=== PATIENT | male | born 2000 | race Caucasian/White ===

== ENCOUNTER 2023-08-06 18:17 | Emergency (ER) | payer MEDICAID, SELFPAY ==
[2023-08-06 18:29] VITALS: BP 156/85; PULSE 95; RESP 18; TEMP 36.6; O2SAT 98; BMI 27.4
--- NOTE | 2023-08-06 18:49 | ED_ITS ---
HPI - Psych General Time Seen by Provider: 18:49 Date Seen: 08/06/23 Chief Complaint: Psychiatric Problem/Disorder Stated Complaint: Mental health Time Seen by Provider: 08/06/23 18:49 Source: patient, RN notes reviewed and old records reviewed Mode of arrival: ambulatory Limitations: no limitations History of Present Illness HPI Narrative: 22-year-old male who presents today with suicide ideation with a plan. History of depression, does have a therapist whom he sees who recommended coming to the emergency department for evaluation. Patient on Wellbutrin, long history of depression without prior inpatient mental health treatment. Suicide ideation with plan to slit his throat in isolated setting. Has not attempted to hurt herself. Denies overdose. Denies smoking and drug use. Related Data Home Medications ?Medication ?Instructions ?Recorded ?Confirmed bupropion HCl 300 mg 24 hr tablet, 300 mg PO DAILY 08/06/23 08/06/23 extended release Allergies Allergy/AdvReac Type Severity Reaction Status Date / Time No Known Drug Allergies Allergy Verified 08/06/23 18:37 Exam Narrative: Exam Narrative: General: Well-developed and well-nourished, no acute distress Head: Atraumatic and normocephalic Eyes: Pupils are equal reactive, extraocular motions intact, conjunctiva clear ENT: External nose and ears are normal, posterior pharynx without erythema or exudate Neck: No midline cervical tenderness, full spontaneous range of motion the neck, trachea midline, no adenopathy Heart: Regular rate and rhythm no murmurs or thrills Lungs: Clear to auscultation bilaterally without wheezes or crackles Abdomen: Soft, nontender, nondistended with active bowel sounds Musculoskeletal: No tenderness, deformity, or edema Neurologic: Awake, alert, and oriented x3, no gross focal neurologic deficits, cranial nerves intact as tested Psych: Poor eye contact, flat affect Skin: No rashes Const: Vital Signs, click to edit/add: Vital Signs - 24 hr 08/06/23 18:29 Temperature 98 F Pulse Rate [Right Pulse Oximeter] 95 Respiratory Rate 18 Blood Pressure [Ri ght Upper Arm] 156/85 H Pulse Oximetry 98 Oxygen Delivery Me thod Room Air Course Course ED Course: Patient seen examined, prior records reviewed. Patient presents today with increasing depressive symptoms, with suicide ideation and plan. Sent here by his therapist. On exam, admits to ongoing suicidal thoughts, worsening depression, also suicide ideation with plan. Poor eye contact, flat affect. Labs ordered and plan for transfer for inpatient behavioral health admission. Reevaluation(s) Time of Reevaluation #1: 22:18 Reevaluation #1: Labs ordered and independently interpreted by me with slightly elevated LFTs, normal basic panel, negative alcohol, negative COVID. Patient is medically stable for mental health admission. Time of Reevaluation #2: 23:33 Reevaluation #2: Patient accepted to [facility] for inpatient behavioral health treatment Vital Signs Vital signs: Initial Vital Signs Temperature 98 F 08/06/23 18:29 Temperature Source Temporal Artery Scan 08/06/23 18:29 Pulse Rate 95 08/06/23 18:29 Pulse Rhythm Regular 08/06/23 18:29 Pulse Strength 3+ Normal 08/06/23 18:29 Respiratory Rate 18 08/06/23 18:29 Blood Pressure 156/85 H 08/06/23 18:29 Blood Pressure Mean 108 H 08/06/23 18:29 Blood Pressure Position Sitting 08/06/23 18:29 Pulse Oximetry 98 08/06/23 18:29 Oxygen Delivery Method Room Air 08/06/23 18:29 Vital Signs Temperature 98 F 08/06/23 18:29 Pulse Rate 95 08/06/23 18:29 Respiratory Rate 18 08/06/23 18:29 Blood Pressure 156/85 H 08/06/23 18:29 Pulse Oximetry 98 08/06/23 18:29 Oxygen Delivery Method Room Air 08/06/23 18:29 Temperature 98 F 08/06/23 18:29 Pulse Rate 95 08/06/23 18:29 Respiratory Rate 18 08/06/23 18:29 Blood Pressure 156/85 H 08/06/23 18:29 Pulse Oximetry 98 08/06/23 18:29 Oxygen Delivery Method Room Air 08/06/23 18:29 MDM - Psych Lab Data Labs: Lab Results 08/06/23 Range/Units 19:49 Sodium 138 (135-149) mmol/L Potassium 3.7 (3.6-5.1) mmol/L Chloride 104 (96-114) mmol/L Carbon Dioxide 27 (20-32) mmol/L Anion Gap 7 (7-15) mEq/L BUN 10 (5-24) mg/dL Creatinine 0.9 (0.5-1.5) mg/dL Estimated Creat Clear 121.39 Estimated GFR 125 ml/min Glucose 97 (60-115) mg/dL Calcium 9.6 (8.4-10.6) mg/dL Total Bilirubin 0.7 (0.1-1.5) mg/dL Direct Bilirubin 0.3 (0.0-0.5) mg/dL AST 126 H (12-35) U/L ALT 77 H (4-50) U/L Alkaline Phosphatase 75 (40-150) U/L Total Protein 7.9 (6.0-8.3) g/dL Albumin 5.3 H (3.3-5.0) g/dL Ethyl Alcohol < 0.01 L (0.01-0.03) % SARS-CoV-2 (PCR) Negative SARS-CoV-2 (Negative) Influenza Type A (PCR) Negative PCR FLU A (Negative) Influenza Type B (PCR) Negative PCR FLU B (Negative) Discharge Plan Discharge Clinical Impression: Depression, Suicide ideation Prescriptions: No Action bupropion HCl 300 mg tablet extended release 24 hr 300 mg PO DAILY
--- OUTSIDE RECORDS SUMMARY | 2023-08-06 19:18 | XMS_ITS | Clinical Summary ---
Author Organization [facility] Address [place], [place] [address] Care Team Providers Care Wastewater Treatment Supervisor Name Role Phone Hilda Bernal Primary Care Provider Unavail able Allergies Active Allergy Reactions Criticality Noted Date Comments Gluten GI Upset 04/07/2020 Medications Medication Sig Dispensed Refills Start Date End Date Status famotidine (PEPCID) 20 mg tabletIndications:Gastr oesophageal reflux disease, unspecified whether esophagitis present Take 1 Tablet (20 mg) by mouth two times daily. 60 Tablet 11 06/07/2022 Active buPROPion (WELLBUTRIN XL) 300 mg Extended-Release tabletIndications:Atten tion deficit hyperactivity disorder (ADHD), predominantly inattentive type,Depression, major, single episode, mild (HC) Take 1 Tablet (300 mg) by mouth once daily. 90 Tablet 1 03/20/2023 Active Active Problems Problem Noted Date Diagnosed Date Celiac disease 08/18/2021 Eating problem 11/21/2017 Adjustment disorder with depressed mood 01/18/20 17 Immunizations Name Administration Dates Next Due DTaP 11/27/2005, 3,04/29/2002,03/04,01/03/2002 HIB-HepB (Comvax) 01/13/2003,03/04/2002,01/04/20 02 HPV 9 (Gardasil 9) 03/27/2016,11/22/2015, 016 Hepatitis A (Peds) 03/27/2016,09/02/2015 Inactivated Polio Vaccine 11/27/2005,,03/04/2002,01/03 Influenza,LAIV4 Live Intrana tay (Flumist) 12/16/2007 MMR 11/27/2005,10/24/2002 Meningococcal Vaccine (Menveo) 07/22/2018,2014 Pneumococcal conj 7-Valent (Prevnar 7) 1 03/15/2002,07/30/2002,04/29/2002,03/04,01/03/2002 Tdap 09/23/2014 Varicella Vaccine 09/23/2014,10/24/2002 Family History Medical History Relation Name Comments Hyperlipidemia Maternal Grandfather Diabetes Other maternal great grandmas Heart Disease Other maternal great aunt and maternal great grandma Diabetes Paternal Grandfather Asthma No Family History Cancer-colon No Family History Relation Name Status Comments Maternal Grandfather Other Paternal Grandfather Social History Tobacco Use Types Packs/Day Years Used Date Smoking Tobacco: Never Passive Smoke Exposure: Yes Smokeless Tobacco: Never Tobacco Cessation:Counseling Given: Yes Comments:parents smoke mostly outside Alcohol Use Standard Drinks/Week Comments No 0 (1 standard drink = 0.6 oz pur e alcohol) PHQ-2 Answer Date Recorded PHQ-2 TOTAL SCORE 2 03/20/2023 Social Connections Answer Date Recorded Frequency of Communication with Friends and Fami ly Not on file 06/21/2023 Financial Resource Strain Answer Date R ecorded Difficulty of Paying Living Expenses 3 06/07/2022 Difficulty of Paying Living Expenses Not on file 06/07/2022 Food Insecurity Answer Date Recorded Worried About Running Out of Food in the Last Ye ar 1 06/07/2022 Transportation Needs Answer Date Record ed Lack of Transportation (Medical) 1 06/07/2022 Housing Stability Answer Date Recorded Unable to Pay for Housing in the Last Year 1 06/07/2022 Sex and Gender Information Value Date Recorded Sex Assigned at Not on file Gender Identity Not on file Sexual Orientation Not on file Obstetrics History Last Filed Vital Signs Vital Sign Reading Time Taken Comments Blood Pressure 117/78 03/20/2023 10:25 AM POLY PACKER AND HEAT SEALER Pulse 81 03/20/2023 10:25 AM POLY PACKER AND HEAT SEALER Temperature 36.2 ??C (97.2 ??F) 04/08/2018 8:49 AM CS T Respiratory Rate 16 08/28/2015 9:30 AM CDT Oxygen Saturation 99% 03/20/2023 10:25 AM POLY PACKER AND HEAT SEALER Inhaled Oxygen Concentration - - Weight 76.2 kg (168 lb) 03/20/2023 10:25 AM POLY PACKER AND HEAT SEALER Height 171.9 cm (5' 7.68) 08/18/2021 1:40 PM CD T Body Mass Index - - Plan of Treatment Upcoming Encounters Date Type Department Care Team (Late st Contact Info) Description 09/19/2023 1:25 PM CDT Office Visit [facility] [address] [place] [address] Eliz Pham MD [address] [place] [address] Health Maintenance Due Date Last Done Comments HIV for age 15-65 2016 Hepatitis C screening for age 18-79 10/03/2019 BMI (ht and wt on same day) for age 18+ 08/18/2022 08/18/2021, 04/07/2020 COVID-19 vaccine series (2022- season) 2022 Influenza for age 9-49 10/07/2023 12/16/2007 Depression screening for age 12+ 03/20/2024 03/20/2023, 06/07/2022, 08/18/2021, Additional history exists Tetanus booster 09/23/2024 09/23/2014 Pneumococcal series for age 6-64 Aged Out 01/12/2003, 07/30/2002, 04/29/2002, Additional history exists No longer eligible based on patient's age to complete this topic Tdap Completed 09/23/2014 HPV series for age 9-26 Completed 03/27/19 17, 11/22/2015, 09/02/2015 Meningococcal series for age 11-21 Completed 07/22/2018, 09/23/2014 Care Teams Wastewater Treatment Supervisor Relationship Specialty Start Date End Date Hilda Bernal PCP - General 01/08/17
[2023-08-06 20:29] LABS: Albumin* 5.3 g/dL (3.3-5.0)
[2023-08-06 20:30] LABS: Chloride* 104 mmol/L (96-114); Potassium* 3.7 mmol/L (3.6-5.1); Sodium* 138 mmol/L (135-149)
[2023-08-06 20:32] LABS: Anion Gap 7 mEq/L (7-15); Bilirubin Direct* 0.3 mg/dL (0.0-0.5); Bilirubin Total* 0.7 mg/dL (0.1-1.5); Carbon Dioxide* 27 mmol/L (20-32); Creatinine* 0.9 mg/dL (0.5-1.5); Est. Creatinine Clearance* 121.39; Estimated Glomerular Filt Rate 125 ml/min
[2023-08-06 20:33] LABS: Alanine Aminotransferase* 77 U/L (4-50); Alkaline Phosphatase* 75 U/L (40-150); Aspartate Amino Transferase* 126 U/L (12-35); Blood Urea Nitrogen* 10 mg/dL (5-24); Calcium* 9.6 mg/dL (8.4-10.6); Glucose* 97 mg/dL (60-115); Total Protein* 7.9 g/dL (6.0-8.3)
[2023-08-06 20:34] LABS: Ethanol* < 0.01 % (0.01-0.03)
[2023-08-06 21:13] LABS: PCR FLU A Negative PCR FLU A (Negative); PCR FLU B Negative PCR FLU B (Negative); SARS PCR* Negative SARS-CoV-2 (Negative)
[2023-08-07 02:28] LABS: Amphetamine Screen Urine Negative (Negative); Barbiturate Screen Urine Negative (Negative); Benzodiazepines Screen Urine Negative (Negative); Cannabinoid Screen Urine Negative (Negative); Cocaine Screen Urine Negative (Negative); Methadone Screen Urine Negative (Negative); Methamphetamines Screen Urine Negative (Negative); Opiate Screen Urine Negative (Negative); Oxycodone Screen Urine Negative (Negative); Phencyclidine Screen Urine Negative (Negative); Tricyclic Antidepressant Urine Negative (Negative)
[2023-08-07 02:48] VITALS: BP 138/68; PULSE 80; RESP 16; TEMP 36.7; O2SAT 98
--- NOTE | 2023-08-07 02:48 | PC.NURSE ---
Report given to CALOS Hirsch at [facility]. Pt has been asleep, calm and cooperative. Pt's VSS, EMS here for transfer.
== END 2023-08-07 02:50 | disposition short-term general hospital (02) ==
LOC: ED 19:17
PROVIDERS: Emergency Provider Family Medicine
DX: R45.851 Suicidal ideations (principal); F32.A Depression, unspecified
CPT/HCPCS: 36415; 80048; 80076; 80306; 82077; 87631; 99285

== ENCOUNTER 2023-08-07 02:50 | Outpatient (CLI) | payer MEDICAID, SELFPAY ==
--- OUTSIDE RECORDS SUMMARY | 2023-08-13 16:55 | XMS_ITS ---
Author Organization [facility] Address [address] [place] [address] Care Team Providers Care Director Of Business Continuity Name Role Phone Unavailable Unavailable Unavailable Surgery Details Not on file Complications Check Surgery Details section. Procedure Estimated Blood Loss Check Surgery Details section. Procedure Findings Check Surgery Details section. Procedure Specimens Taken Check Surgery Details section.
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
--- OUTSIDE RECORDS SUMMARY | 2023-08-13 16:55 | XMS_ITS | Referral Summary ---
Author Organization [facility] Address [address] [place] [address] Care Team Providers Care Rubber Flap Cutter Name Role Phone Unavailable Primary Care Provider Unavailabl e Source Comments Patient records contain information from all sites at [facility]. For routine questions regarding patient records, call [phone] during business hours, M-F 8:00 AM - 5:00 PM Central Time. Record requests for emergency care only can be directed to [phone] at any time.[facility] Encounters Date Type Department Care Team Description 08/06/2023 Intake [facility] from Last 3 Months Allergies Active Allergy Reactions Criticality Noted Date Comments Gluten GI intolerance 08/07/2023 Medications Medication Sig Dispensed Refills Start Date End Date Status lithium carbonate (Eskalith) 300 mg capsule Take 1 capsule (300 mg total) by mouth at bedtime. 30 capsule 08/10/2023 09/09/2023 Active buPROPion XL (Wellbutrin XL) 300 mg 24 hr tablet Take 1 tablet (300 mg total) by mouth daily. 30 tablet 08/10/2023 09/09/2023 Active buPROPion XL (Wellbutrin XL) 300 mg 24 hr tablet Take 1 tablet by mouth daily. 03/20/2023 08/10/2023 Discontinued Active Problems Problem Noted Date Diagnosed Date Suicide Ideation 08/07/2023 Depression Major Recurrent Severe 08/07/2023 Social History Tobacco Use Types Packs/Day Years Used Date Smoking Tobacco: Never Smokeless Tobacco: Never Tobacco Cessation:Counseling Given: Not Answered Alcohol Use Standard Drinks/Week Comments Not Currently 0 (1 standard drink = 0.6 oz pur e alcohol) [facility] Utilities Answer Date Recorded In the past 12 months has e electric, gas, oil, or water company [...] 08/07/2023 PHQ-2 Answer Date Recorded PHQ-2 Score 1 08/10/2023 Hunger Vital Sign Answer Date Recorded Within [...] Recor ded PHQ-9 Total Score (max 27) 3 08/09 Dental Answer Date Recorded Dental: Regular Dentist Unknown 08/06/19 Housing Stability Answer Date Recorded What is your living situation today? I have a [facility] place to live 08/07/2023 Sex and Gender Information Value Date Recorded Sex Assigned at Not on file Gender Identity Not on file Sexual Orientation Not on file Last Filed Vital Signs Vital Sign Reading Time Taken Comments Blood Pressure 126/88 08/10/2023 7:47 AM CDT Pulse 77 08/10/2023 7:47 AM CDT Temperature 36.3 ??C (97.3 ??F) 08/10/2023 7:47 AM CD T Respiratory Rate 18 08/10/2023 7:47 AM CDT Oxygen Saturation 100% 08/10/2023 7:47 AM CDT Inhaled Oxygen Concentration - - Weight 79 kg (174 lb 2.6 oz) 08/07/2023 5:04 AM CDT Height 167.6 cm (5' 6) 08/07/2023 5:04 AM CDT Body Mass Index 28.11 08/07/2023 5:04 AM CDT Plan of Treatment Not on file Procedures Procedure Name Priority Date/Time Associated Diagnosis Comments CBC WITH DIFFERENTIAL, B Routine 08/08/2023 11:37 AM CDT THYROID-STIMULATING HORMONE-SENSITIVE (S-TSH) Routine 08/07/2023 8:33 AM CDT ECG Routine 08/07/2023 8:30 AM CDT from Last 3 Months Results * (ABNORMAL) CBC with Differential, Blood (08/08/2023 11:37 AM CDT) Hemoglobin 16.7(H) 13.2 - 16.6 g/dL 08/08/2023 11:59 AM CDT MKTO Hematocrit 47.1 38.3 - 48.6 % 08/08/2023 11:59 AM CDT [facility]TO Erythrocytes 5.36 4.35 - 5.65 x10(12)/L 08/08/2023 11:59 AM CDT [facility]TO MCV 87.9 78.2 - 97.9 fL 08/08/2023 11:59 AM CDT MKTO RBC Distrib Width 12.1 11.8 - 14.5 % 08/08/2023 11:59 AM CDT MKTO Platelet Count 227 135 - 317 x10(9)/L 08/08/2023 11:59 AM CDT MKTO Leukocytes 6.0 3.4 - 9.6 x10(9)/L 08/08/2023 11:59 AM CDT MKTO Neutrophils 3.61 1.56 - 6.45 x10(9)/L 08/08/2023 11:59 AM CDT MKTO Lymphocytes 1.60 0.95 - 3.07 x10(9)/L 08/08/2023 11:59 AM CDT MKTO Monocytes 0.49 0.26 - 0.81 x10(9)/L 08/08/2023 11:59 AM CDT MKTO Eosinophils 0.21 0.03 - 0.48 x10(9)/L 08/08/2023 11:59 AM CDT MKTO Basophils 0.04 0.01 - 0.08 x10(9)/L 08/08/2023 11:59 AM CDT MKTO Blood (Blood, Venous) 08/08/2023 11:37 AM CDT 08/08/2023 11:56 AM CDT Gisele York.A.-C. LAB BLOOD ADD -ON Performing Organization Address City/[facility]/ZIP Co de Phone Number [facility] [address] [place] [address], [place] [address] * S-TSH (Thyroid-Stimulating Hormone - Sensitive) (08/07/2023 8:33 AM CDT) Pathologist [facility] TSH, Sensitive 3.4 0.3 - 4.2 mIU/L 08/07/2023 9:29 AM CDT MKTO Blood (Blood, Venous) 08/07/2023 8:33 AM CDT 08/07/2023 8:50 AM CDT Gisele York.A.-C. LAB BLOOD ADD -ON Performing Organization Address City/[facility]/ZIP Co de Phone Number [facility] [address] [place] [address], [address] [address] * ECG 12 Lead (08/07/2023 8:30 AM CDT) Ventricular Rate ECG/Min 76 BPM MUSE DC Interval 138 ms MUSE QRSD Interval 86 ms MUSE QT Interval 360 ms MUSE QTC Interval 405 ms MUSE P [place] 73 degrees MUSE R [place] 86 degrees MUSE T Wave [place] 47 degrees MUSE 08/07/2023 8:30 AM CDT 08/07/2023 8:40 AM CDT Impressions MUSE - 08/07/2023 8:32 AM CDT Sinus rhythm with marked sinus arrhythmia Cannot rule out Anteroseptal infarct Nonspecific T wave abnormality No previous ECGs available Reviewed by WAQAS Lazo Narrative Procedure Note Filiberto Tirado M.D. - 08/07/2023 IMPRESSION: Sinus rhythm with marked sinus arrhythmia Cannot rule out Anteroseptal infarct Nonspecific T wave abnormality No previous ECGs available Reviewed by WAQAS Lazo Gisele Alonzo P.A.-C. ECG ORDERABLE S MUSE NA from Last 3 Months Advance Directives For more information, please contact: [phone] * Full Code (Latest Code Status on File) Date Activated Date Inactivated Comments 08/07/2023 8:10 AM 08/10/2023 3:44 PM Question Answer Comments Full Code: Not Discussed Due to: Not medically appropriate
--- OUTSIDE RECORDS SUMMARY | 2023-08-13 16:55 | XMS_ITS | Clinical Summary ---
Author Organization [facility] Address [address] [place] [address] Care Team Providers Care Blender Helper Name Role Phone Unavailable Primary Care Provider Unavailabl e Source Comments Patient records contain information from all sites at [facility]. For routine questions regarding patient records, call [phone] during business hours, M-F 8:00 AM - 5:00 PM Central Time. Record requests for emergency care only can be directed to [phone] at any time.[facility] Allergies Active Allergy Reactions Criticality Noted Date [...] Ideation 08/07/2023 Depression Major Recurrent Severe 08/07/2023 Encounters Date Type Department Care Team Description 08/06/2023 Intake [facility] from Last 3 Months Social History Tobacco Use Types Packs/Day Years Used Date Smoking Tobacco: Never Smokeless Tobacco: Never Tobacco Cessation:Counseling Given: Not Answered Alcohol Use Standard Drinks/Week Comments Not Currently 0 (1 standard drink = 0.6 oz pur e alcohol) [facility] Utilities Answer Date Recorded In the past [...] your living situation today? I have a [facility] place to live 08/07/2023 Sex and [...] 08/07/2023 5:04 AM CDT Plan of Treatment Health Maintenance Due Date Last Done Comments HIV Screening 2001 Hepatitis C Screening 2001 TB Screening during Well Child Visit 2001 1 week Well Child Check-Up 2001 1 month Well Child Check-Up 2001 2 month Well Child Check-Up 2001 4 month Well Child Check-Up 01/02/2002 6 month Well Child Check-Up 03/04/2002 9 month Well Child Check-Up 06/02/2002 12 month Well Child Check-Up 09/01/2002 15 month Well Child Check-Up 12/02/2002 18 month Well Child Check-Up 03/04/2003 2 year Well Child Check-Up 09/02/2003 30 month Well Child Check-Up 03/04/2004 3 year Well Child Check-Up 09/01/2004 Well Child Check-Up Completed in Past Year 09/01/2004 4 year Well Child Check-Up 09/01/2005 5 year Well Child Check-Up 09/01/2006 6 year Well Child Check-Up 09/02/2007 7 year Well Child Check-Up 09/01/2008 8 year Well Child Check-Up 09/01/2009 9 year Well Child Check-Up 09/01/2010 10 year Well Child Check-Up 09/02/2011 11 year Well Child Check-Up 09/01/2012 12 year Well Child Check-Up 09/01/2013 13 year Well Child Check-Up 09/01/2014 14 year Well Child Check-Up 09/02/2015 15 year Well Child Check-Up 09/01/2016 17 year Well Child Check-Up 09/01/2017 17 year Well Child Check-Up 09/01/2018 18 year Well Child Check-Up 09/02/2019 19 year Well Child Check-Up 09/01/2020 21 year Well Child Check-Up 09/01/2021 22 year Well Child Check-Up 09/01/2022 Well Child Check-Up (WCC) 09/01/2022 COVID-19 Vaccine (1 - 2023-24 season) 2022 Influenza Vaccine (#1) 2023 12/16/2007 Depression Monitoring (PHQ-9) 12/11/2023 08/10/2023 DTaP,Tdap,and Td Vaccines (7 - Td or Tdap) 09/23/2024 09/23/2014, 11/27/2005, 01/13/2003, Additional history exists Pneumococcal vaccine (0-64 years) Aged Out 01/12/2003, 07/30/2002, 04/29/2002, Additional history exists No longer eligible based on patient's age to complete this topic Hepatitis B Vaccines Completed 01/13/2003, 03/04/2002, 01/03/2002 HPV Vaccines Completed 03/27/2016, 11/05, 09/02/2015 Meningococcal Vaccine Completed 07/22/2018, 015 Procedures Procedure Name Priority Date/Time Associated Diagnosis [...] CDT Gisele York.A.-C. LAB BLOOD ADD -ON [facility] [address] [place] [address], [place] [address] * S-TSH (Thyroid-Stimulating Hormone - Sensitive) (08/07/2023 8:33 AM CDT) TSH, Sensitive 3.4 0.3 - 4.2 mIU/L 08/07/2023 9:29 AM CDT MKTO Blood (Blood, Venous) 08/07/2023 8:33 AM CDT 08/07/2023 8:50 AM CDT Gisele York.A.-C. LAB BLOOD ADD -ON [facility] [address] [place] [address], [facility] [address] [place] [address] * ECG 12 Lead (08/07/2023 8:30 AM CDT) Ventricular Rate ECG/Min 76 BPM MUSE [place] Interval 138 ms MUSE QRSD Interval 86 ms MUSE QT Interval 360 ms MUSE QTC Interval 405 ms MUSE P Isabel 73 degrees MUSE R Isabel 86 degrees MUSE T Wave [place] 47 degrees MUSE 08/07/2023 8:30 AM CDT [...] Advance Directives For more information, please contact: [phone] * Full Code (Latest Code Status on File) Date Activated Date Inactivated Comments 08/07/2023 8:10 AM 08/10/2023 3:44 PM Question Answer Comments Full Code: Not Discussed Due to: Not medically appropriate
--- OUTSIDE RECORDS SUMMARY | 2023-08-13 16:55 | XMS_ITS | Clinical Summary ---
Author Organization [facility] Address [place], [place] [address] Care Team Providers Care Motor Vehicle Compliance Analyst Name Role Phone [place] [place] [facility] Primary Care Provider Unavail able Allergies Active Allergy Reactions Criticality Noted Date Comments Gluten GI Upset 04/07/2020 Medications Medication Sig Dispensed Refills Start Date End Date Status buPROPion (WELLBUTRIN XL) 300 mg Extended-Release tabletIndications:At tention deficit hyperactivity disorder (ADHD), predominantly inattentive type,Depression, major, single episode, mild (HC) Take 1 Tablet (300 mg) by mouth once daily. 90 Tablet 1 03/20/2023 Active lithium carbonate (LITHONATE) 300 mg capsule Take 300 mg by mouth. 08/10/2023 09/09/2023 Active famotidine (PEPCID) 20 mg tabletIndications:Ga stroesophageal reflux disease, unspecified whether esophagitis present Take 1 Tablet (20 mg) by mouth two times daily. 60 Tablet 11 06/07/2022 08/13/2023 Discontinued (*Patient states no longer taking) Active Problems Problem Noted Date Diagnosed Date Celiac disease 08/18/2021 Eating problem 11/21/2017 Adjustment disorder with depressed mood 01/18/20 17 Encounters Date Type Department Care Team Description 08/13/2023 1:00 PM CDT Office Visit [facility] [address] [place] [address] Eliz Pham MD Hospital F/U (Went to ER in [place] for psych evaluation per psychiatrist. Was sent to [facility] for inpatient care. Was there for about 4 days. After starting [place], feels better. ) 08/13/2023 Travel from Last 3 Months Immunizations Name Administration Dates Next Due DTaP [...] Answer Date Recorded PHQ-2 TOTAL SCORE 2 08/13/2023 Social Connections Answer Date Recorded Frequency of [...] Sign Reading Time Taken Comments Blood Pressure 118/75 08/13/2023 1:00 PM CDT Pulse 84 08/13/2023 1:00 PM CDT Temperature 36.2 ??C (97.2 ??F) 04/08/2018 8:49 AM CS T Respiratory Rate 16 08/28/2015 9:30 AM CDT Oxygen Saturation 97% 08/13/2023 1:00 PM CDT Inhaled Oxygen Concentration - - Weight 80.7 kg (178 lb) 08/13/2023 1:00 PM CDT Height 171.9 cm (5' 7.68) 08/18/2021 1:40 PM CD T Body Mass Index - - Plan of Treatment Health Maintenance Due Date Last Done Comments HIV for age 15-65 2016 Hepatitis C screening for age 18-79 10/03/2019 BMI (ht and wt on same day) for age 18+ 08/18/2022 08/18/2021, 04/07/2020 COVID-19 vaccine series ( season) 2022 Influenza for age 9-49 10/07/2023 12/16/2007 Depression screening for age 12+ 08/12/2024 08/13/2023, 03/20/2023, 06/07/2022, Additional history exists Tetanus booster 09/23/2024 09/23/2014 Pneumococcal series for age 6-64 Aged Out 01/12/2003, 07/30/2002, 04/29/2002, Additional history exists No longer eligible based on patient's age to complete this topic Tdap Completed 09/23/2014 HPV series for age 9-26 Completed 03/27/19 17, 11/22/2015, 09/02/2015 Meningococcal series for age 11-21 Completed 07/22/2018, 09/23/2014 Care Teams Motor Vehicle Compliance Analyst Relationship Specialty Start Date End Date Hilda Bernal PCP - General 01/08/17
== END 2023-08-07 02:51 | disposition home or self-care (01) ==
PROVIDERS: Visit Provider Family Medicine
DX: F32.A Depression, unspecified (principal); R45.851 Suicidal ideations
CPT/HCPCS: A0425; A0427